=== PATIENT | male | born 1960 | race Caucasian/White ===

== ENCOUNTER 2022-10-27 23:51 | Inpatient (IN) ==
[2022-10-27] MEDS ORDERED: IOPAMIDOL 100 ML BOTTLE IV ONE (23:52)
[2022-10-28 00:07] LABS: POC Calcium, Ionized 1.12 (1.16-1.32); POC Creatinine 1.1 (0.6-1.2); POC Potassium 4.1 (3.3-5.1)
[2022-10-28] MEDS ORDERED: fentaNYL 100 MCG/2 ML VIAL IV ONE (00:08)
[2022-10-28] MEDS ORDERED: 0.9 % SODIUM CHLORIDE 1,000 ML IV ONE (00:08)
[2022-10-28] MEDS ORDERED: KETOROLAC 30 MG/ML VIAL IV ONE (00:08)
--- NOTE | 2022-10-28 00:28 | Emergency Department Note ---
Abdominal Pain HPI General Chief Complaint: Abdominal Pain Stated Complaint: Abdominal Pain Time Seen by Provider: 10/28/22 00:02 Source: patient Mode of arrival: ambulatory Limitations: no limitations History of Present Illness HPI Narrative: Narrative: Patient presents ED with complaints of worsening abdominal pain x5 hours prior to arrival. Pain is rated 10/10 described as sharp. States that in the middle of his belly. He states he cannot relax and he had normal bowel movement. States he is try to pass gas but could not. He states that she has some nausea and vomiting with the last emesis being shortly before entering the ED. He denies fever, chills, hematemesis, melena, medic easier, dysuria, hematuria, urinary frequency. Does report a history of partial colon resection secondary to diverticulitis about 12 years ago. Patient denies any other alleviating or aggravating factors. Related Data Previous Rx's Medication Instructions Recorded diclofenac sodium 1 % topical gel 2 g topical QID #100 grams 07/19/21 (Voltaren Arthritis Pain) simvastatin 20 mg tablet 20 mg PO QDAY #90 tabs 08/09/21 albuterol sulfate 90 mcg/actuation 2 puff inhalation .q4-6h PRN 01/21/22 aerosol inhaler (ProAir HFA) cough, shortness of breath, wheezing #8.5 grams fluticasone 100 mcg-salmeterol 50 1 inh inhalation BID #60 ea 01/26/22 mcg/dose blistr powdr for inhalation (Advair Diskus) fluticasone propionate 50 1 spray intranasal BID #16 grams 01/27/22 mcg/actuation nasal spray,suspension losartan 100 mg tablet 100 mg PO QDAY #90 tabs 09/16/22 Allergies Allergy/AdvReac Type Severity Reaction Status Date / Time No Known Drug Allergies Allergy Verified 09/16/22 08:21 Review of Systems ROS ROS Narrative: Narrative: All systems ED: reviewed and negative except as stated. COUNT INCLUDES THE [facility] Narrative Patient History Narrative: Narrative: Medical/Surgical/Family History All Active Problems (Updated 10/28/22 @ 03:04 by Jefe Valencia DO) Small bowel obstruction (Acute) Sprain of jaw, right side, initial encounter (Acute) Acute serous otitis media, right ear (Acute) Cerumen impaction (Acute) Serous otitis media of both ears with rupture of tympanic membrane (Acute) Routine sports physical exam (Acute) Cholelithiasis (Acute) Diverticulosis (Acute) Arthritis of right knee (Acute) Cough (Acute) History of bowel resection (Acute) Abdominal pain (Acute) URI (upper respiratory infection) (Acute) Hypogonadism male (Acute) Medication monitoring encounter (Acute) Epicondylitis, lateral (Acute) Diarrhea (Acute) Acute bronchitis (Acute) [place] syndrome (Acute) 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 Tariq Family History Mother Dementia Type 2 diabetes mellitus without complications Social History Alcohol Intake Frequency: 0-2 drinks per day Exam Narrative Narrative: Narrative: General Limitations: no limitations General appearance: Present grimacing ENT ENT: Present normal oropharynx and mucous membranes moist Respiratory Respiratory: Present normal lung sounds bilaterally; Absent respiratory distress Cardiovascular Cardiovascular: Present regular rate and normal rhythm Adbominal Abdominal: Present distention, tenderness and hypoactive bowel sounds Expanded Abdominal Abdominal Tenderness: Present diffuse Extremities Extremities: Present normal capillary refill Back Back: Absent CVA tenderness (R) or CVA tenderness (L) Neurological Neurological: Present alert and oriented X3 Psychiatric Psychiatric: Present normal affect, normal mood and serious Skin Skin: Present warm (WNL) and intact Course Course Course Narrative: Patient was evaluated for abdominal pain. Labs were obtained were unremarkable with exception of mild leukocytosis. UA was unremarkable. Patient was given IV fluids, IV Zofran, IV fentanyl and IV Toradol which did control his pain. He felt much more comfortable. CT abdomen pelvis obtained with image reviewed myself which concerning for small bowel obstruction with official read pending. NG tube was inserted and set to intermittent suction. Abdominal x-ray obtained with image reviewed myself which show good placement of the NG tube. Case discussed with on-call surgeon, Dr. Nichols, who will evaluate the patient for surgical consideration. For now we will maintain NG tube to intermittent suction. Plan of care was discussed with patient expressed verbal understanding agreement of plan. Reevaluation(s) Reevaluation #1: Patient remains hemodynamically stable. No new complaints at this time Time: 01:10 Consultations Consultation #1: Case discussed with on-call general surgeon, Dr. Nichols who agrees with NG tube for closed-loop bowel obstruction and that he will evaluate the patient for surgical consideration. Time: 04:01 Vital Signs Vital signs: Vital Signs Temperature 97.9 F 10/27/22 23:51 Pulse Rate 87 10/27/22 23:51 Respiratory Rate 22 10/27/22 23:51 Blood Pressure 165/92 10/27/22 23:51 Pulse Oximetry (%) 97 10/27/22 23:51 Oxygen Delivery Method Room Air 10/27/22 23:51 Temperature 97.9 F 10/27/22 23:51 Pulse Rate 76 10/28/22 03:16 Respiratory Rate 22 10/27/22 23:51 Blood Pressure 134/81 10/28/22 04:46 Pulse Oximetry (%) 94 10/28/22 03:16 Oxygen Delivery Method Room Air 10/27/22 23:51 MDM MDM Narrative Medical decision making narrative: Narrative: Differential Diagnosis Differential Diagnosis: Small bowel obstruction, appendicitis, diverticulitis Medical Records Medical records reviewed: Yes I reviewed the patient's medical records. Lab Data Lab results reviewed: Yes I reviewed the patient's lab results. 10/28/22 00:32 Labs: Lab Results 10/28/22 10/28/22 10/28/22 Range/Units 00:02 00:03 00:32 WBC 12.0 H (4.5-11.0) K/mcL RBC 5.88 (4.63-6.08) M/mcL Hgb 18.1 H (13.7-17.5) g/dL Hct 52.8 H (40.1-51.0) % POC Hct 53.0 (41-55) MCV 89.8 (80.0-100.0) fL MCH 30.8 (26.0-34.0) pg MCHC 34.3 (31.0-36.0) g/dL RDW 11.7 (11.5-14.5) % Plt Count 147 (140-440) K/mcL MPV 12.1 (8.8-12.5) fL Immature Gran % (Auto) 0.3 (0.0-0.5) % Neut % (Auto) 72.4 (38.0-78.0) % Lymph % (Auto) 18.0 (15.5-49.0) % [place] % (Auto) 7.5 (1.0-12.0) % Eos % (Auto) 1.2 (0.0-7.0) % Baso % (Auto) 0.6 (0.0-2.0) % Lymph # (Auto) 2.16 (1.50-4.80) K/mcL [place] # (Auto) 0.90 (0.10-0.90) K/mcL Eos # (Auto) 0.15 (0.00-0.70) K/mcL Baso # (Auto) 0.07 (0.00-0.30) K/mcL Immature Gran # 0.04 (0.00-0.05) K/mcl Absolute Neutrophils 8.70 H (1.80-8.00) K/mcL POC VBG pH 7.36 (7.32-7.42) POC VBG pCO2 at Temp 50.3 (41-51) POC VBG pO2 25 (25-40) POC VBG HCO3 28.6 H (24-28) POC VBG Total CO2 30.0 H (25-29) POC Venous O2 Sat 43.0 (40-70) POC VBG Base Excess 3.0 H (-2-2) VBG Lactic Acid 1.3 (0.5-2) POC Sodium 142 (133-145) POC Potassium 4.1 (3.3-5.1) POC Chloride 102 (96-108) POC Total CO2 29.0 (22-30) POC BUN 15 (6-20) POC Creatinine 1.1 (0.6-1.2) POC Glucose 99 (70-105) POC WB Ioniz Calcium 1.12 L (1.16-1.32) Total Bilirubin (0.1-1.0) mg/dL Direct Bilirubin (0-0.3) mg/dL AST (<40) U/L ALT (<40) U/L Alkaline Phosphatase (39-117) U/L Total Protein (5.9-8.4) gm/dL Albumin (3.2-5.2) gm/dL Globulin (2.2-3.7) gm/dL Amylase (28-100) U/L Lipase (7-60) U/L Ethyl Alcohol mg/dL mg/dL Ethyl Alcohol g/dL (<0.010) gm/dL 10/28/22 10/28/22 Range/Units 00:32 00:33 WBC (4.5-11.0) K/mcL RBC (4.63-6.08) M/mcL Hgb (13.7-17.5) g/dL Hct (40.1-51.0) % POC Hct (41-55) MCV (80.0-100.0) fL MCH (26.0-34.0) pg MCHC (31.0-36.0) g/dL RDW (11.5-14.5) % Plt Count (140-440) K/mcL MPV (8.8-12.5) fL Immature Gran % (Auto) (0.0-0.5) % Neut % (Auto) (38.0-78.0) % Lymph % (Auto) (15.5-49.0) % [place] % (Auto) (1.0-12.0) % Eos % (Auto) (0.0-7.0) % Baso % (Auto) (0.0-2.0) % Lymph # (Auto) (1.50-4.80) K/mcL [place] # (Auto) (0.10-0.90) K/mcL Eos # (Auto) (0.00-0.70) K/mcL Baso # (Auto) (0.00-0.30) K/mcL Immature Gran # (0.00-0.05) K/mcl Absolute Neutrophils (1.80-8.00) K/mcL POC VBG pH (7.32-7.42) POC VBG pCO2 at Temp (41-51) POC VBG pO2 (25-40) POC VBG HCO3 (24-28) POC VBG Total CO2 (25-29) POC Venous O2 Sat (40-70) POC VBG Base Excess (-2-2) VBG Lactic Acid (0.5-2) POC Sodium (133-145) POC Potassium (3.3-5.1) POC Chloride (96-108) POC Total CO2 (22-30) POC BUN (6-20) POC Creatinine (0.6-1.2) POC Glucose (70-105) POC WB Ioniz Calcium (1.16-1.32) Total Bilirubin 0.6 (0.1-1.0) mg/dL Direct Bilirubin < 0.2 (0-0.3) mg/dL AST 25 (<40) U/L ALT 30 (<40) U/L Alkaline Phosphatase 62 (39-117) U/L Total Protein 7.0 (5.9-8.4) gm/dL Albumin 4.7 (3.2-5.2) gm/dL Globulin 2.3 (2.2-3.7) gm/dL Amylase 26 L (28-100) U/L Lipase 16 (7-60) U/L Ethyl Alcohol mg/dL < 10.0 mg/dL Ethyl Alcohol g/dL < 0.010 (<0.010) gm/dL Radiology Data Radiology results reviewed: Yes I reviewed the patient's radiology results. Radiology results narrative: CT abdomen pelvis obtained with image reviewed myself which revealed small bowel obstruction Abdominal x-ray obtained with image reviewed myself which shows NG tube in good placement EKG Data EKG #1: EKG attestation: Yes I reviewed and interpreted this EKG. EKG shows normal: sinus rhythm Rate: normal Rhythm: NSR [place]/QRS: normal Heart block present: None ST segment elevation in: None ST segment depression in: None QTc: normal QRS morphology: Present normal Interpretation: no acute changes Core Measures AMI Core Measures Followed: Yes Discharge Plan Patient/Caregiver Discharge Instructions Pt seen by DAY CARE SUPERVISOR/PA only: No Clinical Impression: Small bowel obstruction Patient Disposition: Xfer As Outpt/Obs ([facility]) Condition: Good Follow up with: Rolando Galdamez MD [Primary Care Provider] - Prescriptions: No Action simvastatin 20 mg tablet 20 mg PO QDAY Qty: 90 4RF albuterol sulfate [ProAir HFA] 90 mcg/actuation HFA aerosol inhaler 2 puff inhalation .q4-6h PRN (Reason: cough, shortness of breath, wheezing) Qty: 8.5 0RF Rx Instructions: administer with spacer diclofenac sodium [Voltaren Arthritis Pain] 1 % gel 2 g topical QID Qty: 100 5RF Rx Instructions: apply to single elbow, wrist or hand; for hand includes palm/fingers/back of hand fluticasone propion-salmeterol [Advair Diskus] 100-50 mcg/dose blister with device 1 inh INHALATION BID Qty: 60 12RF fluticasone propionate 50 mcg/actuation spray,suspension 1 spray intranasal BID Qty: 16 5RF losartan 100 mg tablet 100 mg PO QDAY Qty: 90 3RF
[2022-10-28 01:04] LABS: Basophils # (Auto) 0.07 K/mcL (0.00-0.30); Basophils % (Auto) 0.6 % (0.0-2.0); Eosinophils # (Auto) 0.15 K/mcL (0.00-0.70); Eosinophils % (Auto) 1.2 % (0.0-7.0); Hematocrit 52.8 % (40.1-51.0); Hemoglobin 18.1 g/dL (13.7-17.5); Lymphocytes # (Auto) 2.16 K/mcL (1.50-4.80); Mean Cell Volume 89.8 fL (80.0-100.0); Mean Corpuscular HGB Conc 34.3 g/dL (31.0-36.0); Mean Platelet Volume 12.1 fL (8.8-12.5); Monocytes % (Auto) 7.5 % (1.0-12.0); Neutrophils % (Auto) 72.4 % (38.0-78.0); Platelet Count 147 K/mcL (140-440); RBC 5.88 M/mcL (4.63-6.08); Red Cell Distribution Width 11.7 % (11.5-14.5)
[2022-10-28 01:20] LABS: Amylase 26 U/L (28-100)
[2022-10-28 01:22] LABS: Alcohol, Blood < 10.0 mg/dL; Alcohol,Blood < 0.010 gm/dL (<0.010)
[2022-10-28 01:26] LABS: ALT/SGPT 30 U/L (<40); AST/SGOT 25 U/L (<40); Albumin 4.7 gm/dL (3.2-5.2); Alkaline Phosphatase 62 U/L (39-117); Bilirubin,Direct < 0.2 mg/dL (0-0.3); Bilirubin,Total 0.6 mg/dL (0.1-1.0); Globulin 2.3 gm/dL (2.2-3.7)
[2022-10-28] MEDS ORDERED: ONDANSETRON 4 MG/2 ML VIAL IV ONE (02:38)
[2022-10-28] MEDS ORDERED: PIPERACILLIN SODIUM/TAZOBACTAM 3.375 GM in DEXTROSE 5% IN WATER 50 ML IV ONE (03:01)
[2022-10-28] MEDS ORDERED: ONDANSETRON 4 MG/2 ML VIAL IV PRN ×2 (03:01→05:34)
[2022-10-28] MEDS ORDERED: morphine 2 MG/ML VIAL IV PRN (03:01)
--- NOTE | 2022-10-28 03:08 | Cat Scan Report ---
CLINICAL INFORMATION: Abdominal pain. COMPARISON: Abdomen and pelvic CT 09/26/2021 TECHNIQUE: Following enteric contrast, 80 cc of Isovue-370 were injected intravenously, and 60 seconds later, 0.625 mm helical slices were obtained from the mid heart through the subtrochanteric regions. Following reconstruction, 2.5 mm sagittal, coronal and axial reformatted images were processed and reviewed at bone, lung and soft tissue windows. Five minutes later, 0.625 mm helical slices were obtained from the mid heart through the kidneys and viewed at soft tissue windows.The exam was performed using radiation dose optimization techniques including, but not limited to, automated exposure control, adjustment of the mA and/or kV according to patient size and use of iterative reconstruction technique. FINDINGS: The lung bases show subsegmental atelectasis in the posterior lower lobes1. No effusions. The visualized heart is grossly normal. Abdominal images show two stones in the gallbladder neck, each approximately 6 mm, as previously seen. The gallbladder is otherwise normal-no wall thickening or pericholecystic fluid or common bile duct is normal caliber. CBD is 6 mm. Mild fatty change within the liver is stable. No focal hepatic lesions. Both kidneys, adrenal glands, spleen, pancreas and aorta, including aortic branches, are normal in size, configuration and attenuation without focal lesion. There is no free air or adenopathy. Pelvic images show normal urinary bladder, prostate and seminal vesicles.. A U shaped segment of mid jejunum is moderately dilated in the anterior mid mesenteric cavity. The proximal transition point seen on coronal image 43 and the distal transition point is best seen on coronal image 38. The small bowel is markedly decompressed beyond the transitional points. In addition, there is a small amount of interloop fluid. Findings compatible with closed loop obstruction of a mid jejunal segment. Sigmoid diverticulosis noted no evidence of diverticulitis. The appendix region is unremarkable. Bone windows show no osseous abnormality IMPRESSION: Closed loop obstruction of a mid jejunal segment. Small amount of interloop fluid suggests early third spacing. No evidence of free air to suggest perforation. Cholelithiasis-stable. Gallbladder otherwise normal Sigmoid diverticulosis but no evidence of diverticulitis. Interpreted and Authenticated by: Daniel Maldonado 10/28/22
--- NOTE | 2022-10-28 03:45 | XRay Report ---
CLINICAL INFORMATION: ng tube placement.] Closed-loop small bowel obstruction COMPARISON: None. FINDINGS: NG tip overlies the gastric body. Proximal small bowel is moderately dilated compatible with history of closed loop obstruction. Distal small bowel and colon are relatively decompressed.. There is no free air, soft tissue mass, organomegaly or pathologic calcification. IMPRESSION: Distal small bowel obstruction pattern. NG tube overlies the gastric body Interpreted and Authenticated by: Daniel Maldonado 10/28/22
--- NOTE | 2022-10-28 05:15 | General Surgery Consult Note ---
HPI Date of Consult Consult Date: 10/28/22 Requesting physician: Jefe Valencia Primary Care Provider: Rolando Galdamez MD Consult Narrative Patient Information: Note initiated : 10/28/22 at 5:09 am Service Date, if different from initiated Date: [] Patient: Spencer Teran 62 y/o M admitted on for Abdominal Pain. Chief Complaint: [] Huan is seen in consultation after presenting to the ER with acute and abrupt onset of severe and excruciating abdominal pain after dinner earlier this evening. He was seen in the ER and a CT Scan confirmed evidence of a presumed adhesion related Small Bowel Obstruction. An NGT was placed, IVFs were started and he was given a dose of IV ABs. He has had marked improvement since and feels much better overall. He has passed some gas but doesn't recall his last bowel movement. He recalls a single past abdominal surgery with colon resection for diverticulitis. His Cardiac and Pulmonary health are good and he denies any use of oral anticoagulants. Most recent Colonoscopy was in 2020. Chief complaint: Abdominal Pain Reason for consult: Small Bowel Obstruction cc:: CC: Review of Systems All systems: reviewed and no additional remarkable complaints except as stated Constitutional Additional comments: no changes EENT Additional comments: no changes Cardiovascular Additional comments: no chest pain, works out on a regular basis, physically active Respiratory Additional comments: no cough or SOB Gastrointestinal Additional comments: see HPI Genitourinary Additional comments: no issues Integumentary Additional comments: no recent changes Neurological Additional comments: no changes Psychiatric Additional comments: no changes Hematologic/Lymphatic Additional comments: no bleeding issues PFSH PFSH All Active Problems Small bowel obstruction (Acute) Sprain of jaw, right side, initial encounter (Acute) Acute serous otitis media, right ear (Acute) Cerumen impaction (Acute) Serous otitis media of both ears with rupture of tympanic membrane (Acute) Routine sports physical exam (Acute) Cholelithiasis (Acute) Diverticulosis (Acute) Arthritis of right knee (Acute) Cough (Acute) History of bowel resection (Acute) Abdominal pain (Acute) URI (upper respiratory infection) (Acute) Hypogonadism male (Acute) Medication monitoring encounter (Acute) Epicondylitis, lateral (Acute) Diarrhea (Acute) Acute bronchitis (Acute) [place] War syndrome (Acute) 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 Tariq Family History Mother Dementia Type 2 diabetes mellitus without complications Social History alcohol intake frequency: 0-2 drinks per day MEDS/ALLERGIES Home Medications and Allergies Home Medications Medication Instructions Recorded Confirmed Type diclofenac sodium 1 % topical gel 2 g topical QID #100 grams 07/19/21 09/16/22 Rx (Voltaren Arthritis Pain) simvastatin 20 mg tablet 20 mg PO QDAY #90 tabs 08/09/21 09/16/22 Rx albuterol sulfate 90 mcg/actuation 2 puff inhalation .q4-6h PRN 01/21/22 09/16/22 Rx aerosol inhaler (ProAir HFA) cough, shortness of breath, wheezing #8.5 grams fluticasone 100 mcg-salmeterol 50 1 inh inhalation BID #60 ea 01/26/22 09/16/22 Rx mcg/dose blistr powdr for inhalation (Advair Diskus) fluticasone propionate 50 1 spray intranasal BID #16 grams 01/27/22 09/16/22 Rx mcg/actuation nasal spray,suspension losartan 100 mg tablet 100 mg PO QDAY #90 tabs 09/16/22 09/16/22 Rx Allergies Allergy/AdvReac Type Severity Reaction Status Date / Time No Known Drug Allergies Allergy Verified 09/16/22 08:21 Physical Examination Vital Signs Vital signs: Temp Pulse Resp BP Pulse Ox O2 Del Method 97.9 F 76 22 134/81 94 Room Air 10/27/22 23:51 10/28/22 03:16 10/27/22 23:51 10/28/22 04:46 10/28/22 03:16 10/27/22 23:51 General physical appearance General physical exam: other (conversant, non toxic, NAD ) Eyes Eye exam: normal ocular movement; negative icteric Head Head exam IM: Present atraumatic, normal inspection and normocephalic Neck Neck exam: trachea midline and no lymphadenopathy Cardiovascular Cardiovascular exam IM: Present normal rate and rhythm Respiratory Respiratory exam: normal respiratory effort Abdomen Abdomen: Present soft (belly is soft and non tender, there is some mild di stension with NGT in place ) Integumentary Integumentary: Present other (normal appearing intact skin ) Neurologic Neurologic: Present other (appears grossly intact ) Psychiatric Psychiatric: Present oriented to time, oriented to person and oriented to place Results Labs 10/28/22 00:32 Labs: Abnormal lab results 10/28/22 10/28/22 10/28/22 Range/Units 00:02 00:03 00:32 WBC 12.0 H (4.5-11.0) K/mcL Hgb 18.1 H (13.7-17.5) g/dL Hct 52.8 H (40.1-51.0) % Absolute Neutrophils 8.70 H (1.80-8.00) K/mcL POC VBG HCO3 28.6 H (24-28) POC VBG Total CO2 30.0 H (25-29) POC VBG Base Excess 3.0 H (-2-2) POC WB Ioniz Calcium 1.12 L (1.16-1.32) Amylase (28-100) U/L 10/28/22 Range/Units 00:32 WBC (4.5-11.0) K/mcL Hgb (13.7-17.5) g/dL Hct (40.1-51.0) % Absolute Neutrophils (1.80-8.00) K/mcL POC VBG HCO3 (24-28) POC VBG Total CO2 (25-29) POC VBG Base Excess (-2-2) POC WB Ioniz Calcium (1.16-1.32) Amylase 26 L (28-100) U/L Diabetes panel 10/28/22 Range/Units 00:32 AST 25 (<40) U/L ALT 30 (<40) U/L Alkaline Phosphatase 62 (39-117) U/L Total Protein 7.0 (5.9-8.4) gm/dL Albumin 4.7 (3.2-5.2) gm/dL Calcium panel 10/28/22 Range/Units 00:32 Albumin 4.7 (3.2-5.2) gm/dL Adrenal panel 10/28/22 Range/Units 00:32 Total Bilirubin 0.6 (0.1-1.0) mg/dL AST 25 (<40) U/L ALT 30 (<40) U/L Alkaline Phosphatase 62 (39-117) U/L Total Protein 7.0 (5.9-8.4) gm/dL Albumin 4.7 (3.2-5.2) gm/dL All other labs normal. A/P Assessment and plan (1) Small bowel obstruction: Assessment and plan: Presumed Adhesion Related Small Bowel Obstruction He feels clinically improved since presentation without tachycardia and significant ongoing pain at this time Issues are discussed and reviewed at length including options for an attempt at non operative mgmt with bowel rest and decompression which he seems a reasonable candidate for based on how he currently looks even though surgery may ultimately be required. For now, will continue IVFs, IV ABs, Bowel Rest and NGT decompression with close observation. Status: Acute Time Spent With Patient Time: Total time spent is greater than 50% in coordination of care (as documented) at patient's floor/unit and/or counseling patient:
[2022-10-28] MEDS ORDERED: HYDROmorphone 0.5 MG/0.5 ML SYRINGE IV PRN (05:33)
[2022-10-28] MEDS: DEXTROSE 5%-LR 1,000 ML IV SCH ×4 (06:07→23:07)
--- NOTE | 2022-10-28 07:31 | EKG ---
[facility] Test Date: 2022-10-28 Pat Name: Spencer Teran Department: ED Room: Gender: Male Interface Developer: [place] : 1960 Requested By: Jefe Valencia Order Number: [id number] Reading MD: Nilesh Gagnon Measurements Intervals Rarden Rate: 80 P: 37 VT: 146 QRS: 10 QRSD: 85 T: 27 QT: 361 QTc: 417 Interpretive Statements Sinus rhythm Low voltage, precordial leads Electronically Signed On 10-28-2022 7:31:19 PST by Nilesh Gagnon /store/M0/[id number].pdf
[2022-10-28] MEDS: PANTOPRAZOLE 40 MG VIAL IV SCH (07:46)
[2022-10-28] MEDS: PIPERACILLIN SODIUM/TAZOBACTAM 3.375 GM in DEXTROSE 5% IN WATER 50 ML IV SCH ×4 (08:19→23:38)
--- NOTE | 2022-10-28 09:36 | XRay Report ---
CLINICAL INFORMATION: Preop COMPARISON: None. TECHNIQUE: Portable FINDINGS: The heart size, mediastinum and pulmonary vessels are unremarkable. NG tube overlies the esophagus extending off the edge of film-at least two the gastric body. The lungs are clear. There are no effusions. The bones and soft tissues are within normal limits. IMPRESSION: Normal chest. Interpreted and Authenticated by: Daniel Maldonado 10/28/22
[2022-10-28] MEDS: BENZOCAINE 20% 1 SPRAY EACH TOPICAL PRN ×2 (12:39→16:29)
[2022-10-28] MEDS: SUCRETS LOZENGE PO PRN (16:41)
--- NOTE | 2022-10-28 16:52 | General Surgery Progress Note ---
SUBJECTIVE Subjective Patient information: Note initiated : 10/28/22 at 4:46 pm Service Date, if different from initiated Date: [] Patient: Spencer Teran 62 y/o M admitted on 10/28/22 for Abdominal Pain. Chief Complaint: [] Seen at bedside now about 8 hours after admission. Feels much improved from last night, passing copious amounts of gas and denies any abdominal pain at this time, having a hard time with the NGT Constitutional Vitals: Vital Signs Temp Pulse Resp BP Pulse Ox O2 Del Method 97.7 F 70 20 152/97 98 Room Air 10/28/22 12:00 10/28/22 12:00 10/28/22 12:00 10/28/22 12:00 10/28/22 12:00 10/28/22 12:00 Period Temp Pulse Resp BP Sys/Becker Pulse Ox O2 Del Method O2 Flow Rate Last 24 Hr 97.7 F-97.9 F 70-87 20-22 117-180/70-114 92-98 Room Air-Room Air Intake and Output 10/28/22 10/28/22 10/28/22 03:59 11:59 19:59 Intake Total 0375 275 3520 Balance 8347 521 5896 Weight 260 lb Intake & Output: Intake & Output 10/28/22 10/28/22 10/28/22 03:59 11:59 19:59 Intake Total 9432 017 0267 Balance 9460 193 5205 Weight 260 lb Intake: IV 5413 426 2546 Sodium Chloride 0.9% 1,000 ml @ 1000 Wide Open IV BOLUS ONE Rx#: [id number] Dextrose 5%-Lactated Ringers 1, 1000 000 ml @ 150 mls/hr IV .[id number] [facility] Rx#:[id number] Zosyn 3.375 gm In Dextrose 5% 100 50 in Water 50 ml @ 100 mls/hr IV Q6H [facility] Rx#:[id number] Other: # Voids 2 Exam: Looks well, non toxic, NAD Respiratory Respiratory exam: Present normal respiratory exam Cardiovascular Cardiovascular exam: Present RRR GI/Abdominal Additional comments: soft and non tender, perhaps minimal distension, NGT in place Extremities Exam Additional comments: well perfused A/P Assessment and plan (1) Small bowel obstruction: Assessment and plan: Resolving Presumed Adhesion Related SBO Continue IVFs and NGT decompression for now Re check labs and plain fiilms in the AM Status: Acute Time Spent With Patient Time: Total time spent is greater than 50% in coordination of care (as documented) at patient's floor/unit and/or counseling patient:
[2022-10-29] MEDS: DEXTROSE 5%-LR 1,000 ML IV SCH ×3 (00:18→15:55)
[2022-10-29] MEDS: PIPERACILLIN SODIUM/TAZOBACTAM 3.375 GM in DEXTROSE 5% IN WATER 50 ML IV SCH ×3 (05:37→17:03)
[2022-10-29 06:37] LABS: Hematocrit 47.2 % (40.1-51.0); Hemoglobin 16.3 g/dL (13.7-17.5); Mean Cell Volume 91.3 fL (80.0-100.0); Mean Corpuscular HGB Conc 34.5 g/dL (31.0-36.0); Mean Platelet Volume 11.9 fL (8.8-12.5); Platelet Count 117 K/mcL (140-440); RBC 5.17 M/mcL (4.63-6.08); Red Cell Distribution Width 11.5 % (11.5-14.5)
[2022-10-29 06:44] LABS: Blood Urea Nitrogen 10 mg/dL (8-23); Calcium 8.5 mg/dL (8.6-10.4); Carbon Dioxide 26 mmol/L (22-30); Chloride 107 mmol/L (96-108); Glomerular Filtration Rate 91; Glucose 119 mg/dL (70-105)
[2022-10-29] MEDS: PANTOPRAZOLE 40 MG VIAL IV SCH (06:56)
--- NOTE | 2022-10-29 12:58 | General Surgery Progress Note ---
SUBJECTIVE Subjective Patient information: Note initiated : 10/29/22 at 12:56 pm Service Date, if different from initiated Date: [] Patient: Spencer Teran 62 y/o M admitted on 10/28/22 for Abdominal Pain. Chief Complaint: [] Continues to feel much improved, passing as, denies abdominal pain, NGT remains in place Constitutional Vitals: Vital Signs Temp Pulse Resp BP Pulse Ox O2 Del Method O2 Flow Rate 97.7 F 75 16 152/88 95 Room Air 94 10/29/22 11:20 10/29/22 11:20 10/29/22 11:20 10/29/22 11:20 10/29/22 11:20 10/29/22 11:20 10/28/22 20:00 Period Temp Pulse Resp BP Sys/Becker Pulse Ox O2 Del Method O2 Flow Rate Last 24 Hr 97.7 F-98.1 F 75-83 16-20 146-157/87-99 93-95 Room Air-Room Air 94 Intake and Output 10/29/22 10/29/22 10/29/22 03:59 11:59 19:59 Intake Total 1100 1595 Output Total 1200 1250 Balance -100 345 Weight 265 lb 14.4 oz 265 lb 14.4 oz Patient Weight 10/30/22 03:59 Weight 265 lb 14.4 oz Intake & Output: Intake & Output 10/29/22 10/29/22 10/29/22 03:59 11:59 19:59 Intake Total 1100 1595 Output Total 1200 1250 Balance -100 345 Weight 265 lb 14.4 oz 265 lb 14.4 oz Intake: IV 1100 1595 Dextrose 5%-Lactated Ringers 1, 1000 1495 000 ml @ 150 mls/hr IV .[id number] [facility] Rx#:[id number] Zosyn 3.375 gm In Dextrose 5% 100 100 in Water 50 ml @ 100 mls/hr IV Q6H [facility] Rx#:[id number] Output: Gastric Drainage 700 NG/OG 700 Void Amount 1200 550 Other: Urine Appearance Clear Clear Urine Color Yellow Yellow Urine Odor Normal Exam: looks well, NAD Respiratory Additional comments: normal effort without distress Cardiovascular Additional comments: RRR GI/Abdominal Additional comments: soft and non distended, non tender, NGT in place and functional Extremities Exam Additional comments: well perfused A/P Assessment and plan (1) Small bowel obstruction: Assessment and plan: Presumed Adhesion Related SBO Continues to appear clinically resolved OK to start home meds with sips of H20 Possible SBFT tomorrow, plain film results from this am remain pending Status: Acute Time Spent With Patient Time: Total time spent is greater than 50% in coordination of care (as documented) at patient's floor/unit and/or counseling patient:
[2022-10-29] MEDS ORDERED: ALBUTEROL SULFATE 60 PUFF INHALER INH PRN (13:03)
--- NOTE | 2022-10-29 13:03 | XRay Report ---
CLINICAL INFORMATION: eval SBO COMPARISON: 10/28/2022 FINDINGS: NG tube in stable satisfactory position with the tip in the gastric antrum. The stool gas pattern is now unremarkable-no evidence of small bowel obstruction.. There is no free air, soft tissue mass, organomegaly or pathologic calcification. IMPRESSION: Interval resolution small bowel obstruction pattern Interpreted and Authenticated by: Daniel Maldonado 10/29/22
[2022-10-29] MEDS ORDERED: DEXTROSE 5%-LR 1,000 ML IV SCH (13:06)
[2022-10-29] MEDS: SUCRETS LOZENGE PO PRN (16:10)
[2022-10-30] MEDS: PIPERACILLIN SODIUM/TAZOBACTAM 3.375 GM in DEXTROSE 5% IN WATER 50 ML IV SCH ×3 (00:28→11:13)
[2022-10-30] MEDS: DEXTROSE 5%-LR 1,000 ML IV SCH ×2 (03:00→11:22)
[2022-10-30] MEDS: PANTOPRAZOLE 40 MG VIAL IV SCH (06:59)
[2022-10-30] MEDS ORDERED: LOSARTAN 50 MG TABLET PO SCH (09:00)
[2022-10-30] MEDS ORDERED: SIMVASTATIN 20 MG TABLET PO SCH (09:00)
--- NOTE | 2022-10-30 11:12 | General Surgery Progress Note ---
SUBJECTIVE Subjective Patient information: Note initiated : 10/30/22 at 11:06 am Service Date, if different from initiated Date: [] Patient: Spencer Teran 62 y/o M admitted on 10/28/22 for Abdominal Pain. Chief Complaint: [] Feels well, denies any recurrence of now resolved abdominal pain and belly feels back to baseline. Tolerated clears with NGT clamped and passing normal amount of gas along with that. Constitutional Vitals: Vital Signs Temp Pulse Resp BP Pulse Ox O2 Del Method O2 Flow Rate 98.1 F 62 20 139/92 92 Room Air 94 10/30/22 07:28 10/30/22 04:13 10/30/22 07:28 10/30/22 07:28 10/30/22 07:28 10/30/22 07:28 10/28/22 20:00 Period Temp Pulse Resp BP Sys/Becker Pulse Ox O2 Del Method O2 Flow Rate Last 24 Hr 97.6 F-98.1 F 62-77 16-20 135-160/86-92 92-95 Room Air-Room Air Intake and Output 10/29/22 10/30/22 10/30/22 19:59 03:59 11:59 Intake Total 1650 935 50 Output Total 450 1400 Balance 1200 935 -1350 Weight 257 lb 14.4 oz Intake & Output: Intake & Output 10/29/22 10/30/22 10/30/22 19:59 03:59 11:59 Intake Total 1650 935 50 Output Total 450 1400 Balance 1200 935 -1350 Weight 257 lb 14.4 oz Intake: IV 1170 935 50 Dextrose 5%-Lactated Ringers 1, 1120 885 000 ml @ 100 mls/hr IV .Q10H [facility] Rx#:[id number] Zosyn 3.375 gm In Dextrose 5% 50 50 50 in Water 50 ml @ 100 mls/hr IV Q6H [facility] Rx#:[id number] Oral 480 Tube Feeding 0 Output: Gastric Drainage 800 NG/OG 800 Void Amount 450 600 Other: Meal Dinner Urine Appearance Clear Clear Urine Color Yellow Yellow Exam: Looks well, NAD, non toxic Respiratory Additional comments: normal effort without distress Cardiovascular Cardiovascular exam: Present RRR GI/Abdominal Additional comments: soft and non tender, non distended, no mass or other issue NGT removed at bedside Extremities Exam Additional comments: well perfused A/P Assessment and plan (1) Small bowel obstruction: Assessment and plan: Clinically and radiographically resolved SBO Plain films look good to my review with read not yet back Will discharge today with ok to advance diet as desired Clinic follow up in 2-4 weeks and importance of immediate return to hospital for any recurrence of symptoms is discussed at length Status: Acute Time Spent With Patient Time: Total time spent is greater than 50% in coordination of care (as documented) at patient's floor/unit and/or counseling patient:
--- NOTE | 2022-10-30 14:26 | XRay Report ---
CLINICAL INFORMATION: eval SBO COMPARISON: 10/29/2022 FINDINGS: NG tube in stable satisfactory position with the tip in the gastric antrum. The stool gas pattern remains unremarkable-no evidence of Recurrent small bowel obstruction.. There is no free air, soft tissue mass, organomegaly or pathologic calcification. IMPRESSION: Negative. No evidence of recurrent small bowel obstruction. Interpreted and Authenticated by: Daniel Maldonado 10/30/22
== END 2022-10-30 12:04 | disposition home or self-care (01) | DRG 390 ==
LOC: ED 23:51 → MEDSUR 10-28 05:49
PROVIDERS: ADMIT Surgery Surgical Critical Care; ATTEND Surgery Surgical Critical Care

== ENCOUNTER 2025-04-18 08:42 | Inpatient (IN) ==
[2025-04-18] MEDS ORDERED: IOPAMIDOL 100 ML BOTTLE IV ONE (08:43)
[2025-04-18 09:28] LABS: Basophils # (Auto) 0.02 K/mcL (0.00-0.30); Basophils % (Auto) 0.2 % (0.0-2.0); Eosinophils # (Auto) 0.06 K/mcL (0.00-0.70); Eosinophils % (Auto) 0.5 % (0.0-7.0); Hematocrit 56.1 % (40.1-51.0); Hemoglobin 19.1 g/dL (13.7-17.5); Lymphocytes # (Auto) 0.74 K/mcL (1.50-4.80); Lymphocytes % (Auto) 5.8 % (15.5-49.0); Mean Corpuscular HGB Conc 34.0 g/dL (31.0-36.0); Monocytes # (Auto) 0.49 K/mcL (0.10-0.90); Monocytes % (Auto) 3.9 % (1.0-12.0); Neutrophils % (Auto) 89.4 % (38.0-78.0); Platelet Count 136 K/mcL (140-440); RBC 6.18 M/mcL (4.63-6.08); WBC 12.7 K/mcL (4.5-11.0)
[2025-04-18] MEDS: ONDANSETRON 4 MG/2 ML VIAL IV ONE (09:28)
[2025-04-18 09:36] LABS: ALT/SGPT 40 U/L (<40); AST/SGOT 33 U/L (<40); Albumin 4.6 gm/dL (3.2-5.2); Albumin/Globulin Ratio 1.9 (1.0-2.3); Alkaline Phosphatase 59 U/L (39-117); Anion Gap 13.0 (8.0-16.0); Bilirubin,Total 1.1 mg/dL (0.1-1.0); Blood Urea Nitrogen 11 mg/dL (8-23); Calcium 9.8 mg/dL (8.6-10.4); Carbon Dioxide 23 mmol/L (22-30); Chloride 103 mmol/L (96-108); Globulin 2.4 gm/dL (2.2-3.7); Glucose 130 mg/dL (70-105); Potassium 4.4 mmol/L (3.3-5.1); Sodium 139 mmol/L (133-145)
[2025-04-18 10:15] LABS: INR 0.9 (0.9-1.1); Prothrombin Time 13.0 sec (11.9-14.5)
[2025-04-18] MEDS: 0.9 % SODIUM CHLORIDE 1,000 ML IV ONE (10:40)
[2025-04-18] MEDS: LIDOCAINE 2% URO-JET 10 ML JEL.PF.APP UR ONE (11:58)
[2025-04-18] MEDS ORDERED: BENZOCAINE ONE 20% 1 SPRAY TOPICAL (12:30)
[2025-04-18] MEDS ORDERED: ALBUTEROL SULFATE 60 PUFF INHALER INH PRN ×2 (12:37→12:40)
[2025-04-18] MEDS: DEXTROSE 5%-LR 1,000 ML IV SCH (14:35)
[2025-04-18] MEDS: BENZOCAINE/MENTHOL 1 LOZENGE PO PRN (15:16)
[2025-04-18] MEDS: PANTOPRAZOLE 40 MG VIAL IV SCH (17:24)
[2025-04-18] MEDS ORDERED: FLUTICASONE/SALMETEROL 50/100 INHALER #14 INH SCH (21:00)
[2025-04-19 02:39] LABS: Bilirubin,Urine Negative (Negative); Color,Urine YELLOW; Glucose,Urine (UA) Negative (Negative); Ketones,Urine 5 mg/dL (Negative); Leukocyte Esterase,Urine Negative /uL (Negative); Mucus,Urine MOD /hpf; PH,Urine 5.0 (5.0-9.0); Protein,Urine Negative (Negative); Specific Gravity,Urine 1.039 (1.000-1.035); Urobilinogen,Urine Negative
[2025-04-19 05:58] LABS: Hematocrit 49.0 % (40.1-51.0); Hemoglobin 16.7 g/dL (13.7-17.5); Mean Corpuscular HGB Conc 34.1 g/dL (31.0-36.0); Platelet Count 118 K/mcL (140-440); RBC 5.29 M/mcL (4.63-6.08); WBC 9.4 K/mcL (4.5-11.0)
[2025-04-19 06:39] LABS: ALT/SGPT 25 U/L (<40); AST/SGOT 19 U/L (<40); Albumin 3.7 gm/dL (3.2-5.2); Albumin/Globulin Ratio 2.2 (1.0-2.3); Alkaline Phosphatase 44 U/L (39-117); Anion Gap 8.0 (8.0-16.0); Bilirubin,Total 0.7 mg/dL (0.1-1.0); Blood Urea Nitrogen 8 mg/dL (8-23); Calcium 8.5 mg/dL (8.6-10.4); Carbon Dioxide 28 mmol/L (22-30); Chloride 105 mmol/L (96-108); Globulin 1.7 gm/dL (2.2-3.7); Glucose 123 mg/dL (70-105); Potassium 3.4 mmol/L (3.3-5.1); Sodium 141 mmol/L (133-145)
[2025-04-19] MEDS: DEXTROSE 5%-LR 1,000 ML IV SCH (17:43)
[2025-04-20] MEDS: HYDROmorphone 0.5 MG/0.5 ML SYRINGE IV PRN (06:43)
[2025-04-20 07:12] LABS: Hematocrit 49.4 % (40.1-51.0); Hemoglobin 16.9 g/dL (13.7-17.5); Mean Corpuscular HGB Conc 34.2 g/dL (31.0-36.0); Platelet Count 123 K/mcL (140-440); RBC 5.41 M/mcL (4.63-6.08); WBC 8.7 K/mcL (4.5-11.0)
[2025-04-20 08:01] LABS: Anion Gap 9.0 (8.0-16.0); Blood Urea Nitrogen 6 mg/dL (8-23); Calcium 9.0 mg/dL (8.6-10.4); Carbon Dioxide 27 mmol/L (22-30); Chloride 107 mmol/L (96-108); Glucose 110 mg/dL (70-105); Potassium 3.8 mmol/L (3.3-5.1); Sodium 143 mmol/L (133-145)
[2025-04-20] MEDS: LIDOCAINE 4% TOP PATCH TOPICAL ONE (10:37)
[2025-04-20] MEDS: LIDOCAINE 4% TOP PATCH TOPICAL SCH ×2 (10:37→11:35)
[2025-04-20 19:11] VITALS: TEMP 97.6; O2SAT 96
== END 2025-04-20 18:30 | disposition home or self-care (01) | DRG 390 ==
LOC: ED 08:42 → MEDSUR 13:17
PROVIDERS: ADMIT Surgery Surgical Critical Care; ATTEND Surgery Surgical Critical Care